=== PATIENT | male | born 1935 | race Caucasian/White ===

== ENCOUNTER 2017-10-26 18:05 | Inpatient (IN) | payer OTHER ==
[~2017-10-26] VITALS: Ht 172.7 cm; Wt 96.9 kg
--- NOTE | ~2017-10-26 | EKG ---
[address] [address] ELECTROCARDIOGRAM REPORT Name: SCAR BALDERRAMA Room #: 216-P ADM IN M.R.#: [id number] Admission: 10/26/17 Attend Phys: Phani White MD Discharge: Date of : 31 Report #: [id number] THIS REPORT FOR: //name// [facility] ED Test Date: 2017-10-26 Test Time: 18:16:44 Pat Name: SCAR BALDERRAMA Department: Room: 216 Gender: M Talent Acquisition Associate: CARI : 1935 Requested By: Aiden Mckeon Order Number: [id number] MD: Saúl Smallwood Measurements Intervals [place] Rate: 143 P: 258 MT: 59 QRS: -77 QRSD: 145 T: 66 QT: 296 QTc: 457 Interpretive Statements Atrial flutter with 2-1 AV conduction Leftward axis Right bundle branch block No previous ECG available for comparison Electronically Signed On 10-27-2017 7:51:06 JAZZ SINGER by Saúl Smallwood [email or web address] <ELECTRONICALLY SIGNED> By: Saúl Smallwood MD, [facility] 10/27/17 0751 D: [id number] Saúl Smallwood MD, FACC /EPI
--- NOTE | ~2017-10-26 | EKG ---
[address] [address] ELECTROCARDIOGRAM REPORT Name: SCAR BALDERRAMA Room #: 216-P ADM IN M.R.#: [id number] Admission: 10/26/17 Attend Phys: Phani White MD Discharge: Date of : 31 Report #: [id number] THIS REPORT FOR: //name// [facility] Test Date: 2017-10-27 Test Time: 06:47:16 Pat Name: SCAR BALDERRAMA Department: Room: 216 P Gender: M Construction Project Coordinator: ALLA : 1935 Requested By: Aiden Mckeon Order Number: [id number] MD: Saúl Smallwood Measurements Intervals [place] Rate: 70 P: [place]: QRS: -72 QRSD: 152 T: -17 QT: 459 QTc: 496 Interpretive Statements 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
--- NOTE | ~2017-10-26 | 2DMMODE ---
[facility] [address] [place] [address] 2 D/M-MODE ECHOCARDIOGRAM Name: SCAR BALDERRAMA Room #: 216-P [facility] IN ..#: [id number] Admission: 10/26/17 Attend Phys: Phani White MD Discharge: Date of : 31 Date of Service: 10/27/17 1209 Report #: [id number] THIS REPORT FOR: //name// APPROVED REPORT Study performed: 10/27/2017 10:51:12 EXAM: Comprehensive 2D, Doppler, and color-flow Echocardiogram Patient Location: Bedside Room #: 216 Status: routine BSA: 2.03 HR: 68 bpm BP: 127/76 mmHg Other Information Study Quality: Adequate Indications Hypertension/HDD New onset Atrial Flutte 2D Dimensions RVDd: 41.13 mm LVEF(%): 43.07 (>50%) IVSd: 9.84 (7-11mm) LVOT Diam: 21.84 (18-24mm) LVDd: 49.02 mm PWd: 9.87 (7-11mm) Ascending Ao: 33.49 (22-36mm) LVDs: 38.59 (25-40mm) Aortic Root: 31.54 mm IVC: 23.00 mm Box's LVEF: 43.07 % Volumes Left Atrial Volume (Systole) Single Plane 4CH: 67.40 mL Single Plane 2CH: 51.73 mL LA ESV Index: 34.00 mL/m2 Aortic Valve AoV Peak Jermaine.: 1.02 m/s AO Peak Gr.: 4.13 mmHg LVOT Max P.71 mmHg LVOT Max V: 0.65 m/s HELGA Vmax: 2.41 cm2 Mitral Valve E/A Ratio: 1.7 MV Decel. Time: 145.27 ms [facility] [place] [address] 2 D/M-MODE ECHOCARDIOGRAM Name: SCAR BALDERRAMA Room #: 216-P [facility] IN M.R.#: [id number] Admission: 10/26/17 Attend Phys: Phani White MD Discharge: Date of : 31 Date of Service: 10/27/17 1209 Report #: [id number] MV E Max Jermaine.: 1.06 m/s MV A Jermaine.: 0.64 m/s MV PHT: 42.13 ms IVRT: 106.11 ms Pulmonary Valve PV Peak Jermaine.: 0.87 m/s PV Peak Gr.: 3.03 mmHg Tricuspid Valve TR Peak Jermaine.: 1.79 m/s TR Peak Gr.: 12.86 mmHg PA Pressure: 23.00 mmHg Left Ventricle The left ventricle is normal size. There is global hypokinesis of the left ventricle. There is normal left ventricular wall thickness. Left ventricular systolic function is mildly decreased. LVEF is 45%. This study is not technically sufficient to allow evaluation of the LV diastolic function due to atrial flutter. Right Ventricle The right ventricle is normal size. The right ventricular systolic function is normal. Atria Left atrium is dilated. Right atrium is dilated. Aortic Valve The aortic valve is normal in structure. Aortic valve is calcified. No aortic regurgitation is present. There is no aortic valvular stenosis. Mitral Valve The mitral valve is normal in structure. Trace to mild mitral regurgitation. No evidence of mitral valve stenosis. Tricuspid Valve The tricuspid valve is normal in structure. There is trace to mild tricuspid regurgitation. Estimated PAP 23 mmHg. There is no pulmonary hypertension. Pulmonic Valve The pulmonary valve is normal in structure. There is no pulmonic valvular regurgitation. [employer] [facility] [address] [place] [address] 2 D/M-MODE ECHOCARDIOGRAM Name: SCAR BALDERRAMA Room #: 216-P [facility] IN ..#: [id number] Admission: 10/26/17 Attend Phys: Phani White MD Discharge: Date of : 31 Date of Service: 10/27/17 1209 Report #: [id number] The aortic root is normal in size. IVC is dilated and collapses <50% with inspiration. Pericardium There is no pericardial effusion. <Conclusion> The left ventricle is normal size. There is global hypokinesis of the left ventricle. LVEF is 45%. Left atrium is dilated. Right atrium is dilated. The aortic valve is normal in structure. Aortic valve is calcified. The mitral valve is normal in structure. Trace to mild mitral regurgitation. The tricuspid valve is normal in structure. There is trace to mild tricuspid regurgitation. Estimated PAP 23 mmHg. There is no pulmonary hypertension. The pulmonary valve is normal in structure. There is no pericardial effusion. <ELECTRONICALLY SIGNED> By: Rodney Bourgeois MD 10/27/17 1209 08 08 Rodney Bourgeois MD /INF
[2017-10-26 18:13] VITALS: BP 132/90
[2017-10-26 18:51] LABS: ABSOLUTE NEUTROPHILS 4.8 thou/uL (1.4-8.2); BASOPHILS 0.7 % (0.0-2.0); EOSINOPHILS 2.3 % (0.0-3.0); HEMATOCRIT 46.8 % (42.0-52.0); HEMOGLOBIN 15.8 gm/dL (14.0-18.0); LYMPHOCYTES 26.6 % (24.0-44.0); MCH 30.6 pg (26.0-34.0); MCHC 33.8 g/dL (28.0-37.0); MCV 90.3 fL (80.0-100.0); MONOCYTES 8.3 % (1.0-8.0); PLATELET COUNT 302 thou/uL (150-400); POLYS 62.1 % (36.0-66.0); RBC 5.19 mil/uL (4.50-6.00); RDW 12.7 % (10.5-14.5); WBC 7.7 thou/uL (4.0-11.0)
[2017-10-26 19:01] LABS: ANION GAP 6 mmol/L (7-16); BUN 22 mg/dL (7-18); CALCIUM 9.2 mg/dL (8.5-10.1); CHLORIDE 104 mmol/L (98-107); CO2 28 mmol/L (21-32); GLUCOSE 105 mg/dL (74-106); SODIUM 138 mmol/L (136-145)
[2017-10-26 19:10] LABS: TROPONIN-I < 0.04 ng/mL (<0.06)
[2017-10-26 20:02] VITALS: BP 118/75
[2017-10-26 21:01] VITALS: BP 119/81
[2017-10-26] MEDS ORDERED: ZOCOR20 MG PO (21:09)
[2017-10-26] MEDS ORDERED: TERBINAFINE HC250 MG (21:09)
[2017-10-26] MEDS ORDERED: FLOMAX0.4 MG PO (21:10)
[2017-10-26] MEDS ORDERED: LISINOPRIL-HCT1 EAC1 PO (21:12)
[2017-10-26 23:57] VITALS: BP 110/67
[2017-10-27 04:25] VITALS: BP 113/76
[2017-10-27 07:18] LABS: ANION GAP 8 mmol/L (7-16); BUN 21 mg/dL (7-18); CALCIUM 8.8 mg/dL (8.5-10.1); CHLORIDE 105 mmol/L (98-107); CO2 27 mmol/L (21-32); CREATININE 0.9 mg/dL (0.7-1.3); GLUCOSE 108 mg/dL (74-106); POTASSIUM 3.8 mmol/L (3.5-5.1); SODIUM 140 mmol/L (136-145); TROPONIN-I < 0.04 ng/mL (<0.06)
[2017-10-27 07:55] VITALS: BP 127/76
[2017-10-27 11:25] VITALS: BP 113/82
[2017-10-27 16:10] VITALS: BP 121/84
[2017-10-27 19:23] VITALS: BP 102/70
[2017-10-28 03:23] LABS: BASOPHILS 0.6 % (0.0-2.0); EOSINOPHILS 2.9 % (0.0-3.0); HEMATOCRIT 44.2 % (42.0-52.0); HEMOGLOBIN 14.9 gm/dL (14.0-18.0); LYMPHOCYTES 27.7 % (24.0-44.0); MCH 30.6 pg (26.0-34.0); MCHC 33.8 g/dL (28.0-37.0); MCV 90.5 fL (80.0-100.0); MONOCYTES 9.9 % (1.0-8.0); PLATELET COUNT 290 thou/uL (150-400); POLYS 58.9 % (36.0-66.0); RBC 4.88 mil/uL (4.50-6.00); RDW 12.7 % (10.5-14.5); WBC 8.5 thou/uL (4.0-11.0)
[2017-10-28 04:09] LABS: CALCIUM 9.1 mg/dL (8.5-10.1); POTASSIUM 3.9 mmol/L (3.5-5.1)
[2017-10-28 04:39] VITALS: BP 100/65
[2017-10-28 07:44] VITALS: BP 126/84
[2017-10-28] MEDS ORDERED: PRADAXA150 MG PO (12:25)
[2017-10-28] MEDS ORDERED: ATENOLOL 50MG T50 M1 PO (12:26)
[2017-10-28 12:29] VITALS: BP 122/83
[2017-10-28 13:06] VITALS: BP 122/83
== END 2017-10-28 13:45 | disposition home or self-care (01) | DRG 310 ==
LOC: ER 18:05 → 2N 19:19 → EROBS 19:19 → 2N 20:03 → ENTRNSPT 10-28 13:30 → EDTRNSPTSTS 10-28 13:34 → 2N 10-28 13:45
PROVIDERS: Family Medicine; Nurse Practitioner; Nurse Practitioner Family
DX: I48.92 Unspecified atrial flutter (principal); I10 Essential (primary) hypertension; E78.5 Hyperlipidemia, unspecified; E78.00 Pure hypercholesterolemia, unspecified; Z90.49 Acquired absence of other specified parts of digestive tract; Z88.0 Allergy status to penicillin; Z88.8 Allergy status to other drugs, medicaments and biological substances; Z88.1 Allergy status to other antibiotic agents; Z87.891 Personal history of nicotine dependence; Z85.46 Personal history of malignant neoplasm of prostate; Z92.21 Personal history of antineoplastic chemotherapy; Z92.3 Personal history of irradiation; Z79.899 Other long term (current) drug therapy
CPT/HCPCS: 10081

== ENCOUNTER → 2019-11-16 | Outpatient (CLI) | payer OTHER ==
[~2019-11-16] MED LIST: ATENOLOL 50MG T50 M1 PO; FLOMAX0.4 MG PO; LISINOPRIL-HCT1 EAC1 PO; PRADAXA150 MG PO; TERBINAFINE HC250 MG; ZOCOR20 MG PO
== END ==
LOC: SJCVC 10:27
DX: I45.2 Bifascicular block (principal); I48.92 Unspecified atrial flutter; I44.39 Other atrioventricular block; R94.31 Abnormal electrocardiogram [ECG] [EKG]; I42.9 Cardiomyopathy, unspecified; I10 Essential (primary) hypertension; R60.9 Edema, unspecified; Z79.01 Long term (current) use of anticoagulants; Z79.899 Other long term (current) drug therapy; Z82.49 Family history of ischemic heart disease and other diseases of the circulatory system; Z87.891 Personal history of nicotine dependence

== ENCOUNTER → 2021-07-10 | Outpatient (CLI) | payer OTHER | LOC: SJCVC 10:19 | PROVIDERS: ATTEND Internal Medicine Cardiovascular Disease | DX: R94.31 Abnormal electrocardiogram [ECG] [EKG] (principal); I11.9 Hypertensive heart disease without heart failure; I48.92 Unspecified atrial flutter; I42.9 Cardiomyopathy, unspecified; R60.9 Edema, unspecified; E78.5 Hyperlipidemia, unspecified; Z88.0 Allergy status to penicillin; Z88.1 Allergy status to other antibiotic agents; Z88.8 Allergy status to other drugs, medicaments and biological substances; Z79.84 Long term (current) use of oral hypoglycemic drugs; Z79.899 Other long term (current) drug therapy; Z82.49 Family history of ischemic heart disease and other diseases of the circulatory system; Z87.891 Personal history of nicotine dependence ==